=== PATIENT | female | born 1990 | race Caucasian/White ===

== ENCOUNTER 2020-05-04 19:54 | Emergency (ER) | payer MEDICAID, OTHER ==
[~2020-05-04] VITALS: Ht 157.5 cm; Wt 88.6 kg
[2020-05-04 20:06] VITALS: BP 139/88
== END 2020-05-04 20:30 | disposition home or self-care (01) ==
LOC: EMS 19:54
DX: L60.0 Ingrowing nail (principal); L03.031 Cellulitis of right toe; Z90.49 Acquired absence of other specified parts of digestive tract
CPT/HCPCS: 99283